=== PATIENT | female | born 1975 | race Caucasian/White ===

== ENCOUNTER → 2018-09-30 | Outpatient (CLI) | payer OTHER ==
[~2018-09-30] MED LIST: CYC10 PO; CYCL10TA29 PO; FLU60SYR36 IM; HYDR-653 PO; IBU800 PO; NO ROUTINE MEDS; PER PO; PNV1TABL92 PO
--- NOTE | 2018-09-30 16:32 | RADIOLOGY IMAGING REPORT ---
FACILITY: [facility] PATIENT NAME: NILTON ESCOBAR : [id number] MR: [id number] V: [id number] EXAM DATE: [id number] ORDERING PHYSICIAN: BELLA MATHIS TECHNOLOGIST: Quyen Calderón PROCEDURE: BILATERAL DIGITAL SCREENING MAMMOGRAM WITH CAD ASSISTED INTERPRETATION & 3D TOMOSYNTHESIS REASON FOR STUDY: Screening. FAMILY HISTORY OF BREAST CANCER: BREAST PROCEDURES/TREATMENTS: COMPARISON: 01/19/15 VIEWS OBTAINED: Bilateral 2D & 3D full field CC & MLO projections BREAST DENSITY: The breast parenchyma is heterogeneously dense. MAMMOGRAM FINDINGS: There are non mammographic findings concerning for malignancy. No significant interval change. IMPRESSION: BIRADS 1: Negative. DIAGNOSTIC CATEGORY 1--NEGATIVE. RECOMMENDATIONS: ROUTINE MAMMOGRAM IN 1 YEAR AND CLINICAL EVALUATION. Dictated by: Juan Briceno on 09/30/2018 at 13:30 Transcribed by: DC on 09/30/2018 at 14:49 Approved by: Juan Briceno on 09/30/2018 at 16:29 [facility]
== END ==
LOC: MAMO 00:30
PROVIDERS: ATTEND Obstetrics & Gynecology
DX: Z12.31 Encounter for screening mammogram for malignant neoplasm of breast (principal)
CPT/HCPCS: 77063; 77067